=== PATIENT | male | born 1935 | race Caucasian/White ===

== ENCOUNTER → 2018-03-07 13:59 | Outpatient (CLI) | payer MEDICARE, OTHER, SELFPAY ==
--- NOTE | 2018-03-07 | DI.US.S_ITS ---
PROCEDURE: US RENAL COMPLETE INDICATIONS: HISTORY OF BLADDER CANCER TECHNIQUE: Real-time scanning was performed of the kidneys and bladder, with image documentation. COMPARISON: [facility], CT, KIDNEY/ URETER/BLADDER, 07/22/2017, 11:00. FINDINGS: Kidneys: Left kidney is surgically absent. Right kidney is normal measuring 13.7 cm in length with renal cortical thickness 2.3 cm. No hydronephrosis, nephrolithiasis or mass. Bladder: Pre-void bladder volume is 199 mL. Post-void residual is 27 mL. Pre-void images demonstrate no intraluminal masses or stones. On pre-void images, right ureteral jets are noted with color Doppler interrogation. (Of note, ureteral jets may not be detectable in up to 25% of cases due to insufficient differences in specific gravity between ureteral and bladder urine). Miscellaneous: No free pelvic fluid. IMPRESSION: Normal appearance of the solitary right kidney. Dictated by: Abelardo RUVALCABA Interpreted: Marko Iglesias MD on 03/07/2018 at 14:36 Approved by: Oleksandr Iglesias M.D. on 03/10/2018 at 13:01
== END ==
PROVIDERS: Family Provider Family Medicine; PCP Family Medicine; Visit Provider Urology
DX: Z90.5 Acquired absence of kidney (principal); Z85.51 Personal history of malignant neoplasm of bladder
CPT/HCPCS: 76770

== ENCOUNTER → 2018-03-10 13:19 | Outpatient (CLI) | payer MEDICARE, OTHER, SELFPAY ==
--- NOTE | 2018-03-10 | DI.MRI.S_ITS ---
PROCEDURE: MR KNEE RT WO CON INDICATIONS: OSTEOARTHRITIS - right TECHNIQUE: Noncontrast sagittal PD fast spin echo and T2 fast spin echo with fat saturation, sagittal 3-D FLASH with fat saturation; coronal T1 spin echo and PD fast spin echo with fat saturation, and axial PD fast spin echo with fat saturation through the knee. COMPARISON: None. FINDINGS: Image quality: Excellent. Menisci: Circumferential severe macerated and poorly defined tear of the medial meniscus. Very little medial meniscal body substances identified. Undersurface tear involving the posterior horn and body of the lateral meniscus. Cruciate ligaments: Anterior cruciate ligament is not well-visualized and likely ruptured. Posterior cruciate ligament appears intact. Medial structures: The medial collateral ligament appears intact although there may be sequela of age indeterminate mild sprain. The posterior oblique ligament, semimembranosus tendon insertions, oblique popliteal ligament, and meniscocapsular junction appear intact. Visualized portions of the pes anserinus tendons appear normal. No abnormal bursal fluid. Lateral structures: The lateral collateral ligament, long and short heads of the biceps femoris tendon appear intact. The popliteus tendon appears normal; the popliteofibular ligament appears intact. The posterosuperior and anteroinferior popliteomeniscal fascicles appear intact. The arcuate and fabellofibular ligaments appear intact, on either side of the lateral inferior geniculate artery. Iliotibial band appears normal. Anterior structures: Prepatellar and superficial infrapatellar subcutaneous edema. The quadriceps and patellar tendons appear intact. Patellar alignment is normal. No femoral trochlear dysplasia or ventral trochlear prominence. No edema in the infrapatellar fat pad. Bones and cartilage: No bone marrow contusions or fractures. Within the medial compartment, full-thickness femoral and tibial articular cartilage loss is present with extensive subchondral cystic change and marrow edema. Within the lateral compartment, there is partial-thickness loss of surface fraying of the central weightbearing femoral and tibial articular cartilage. Within the patellofemoral compartment, near full-thickness loss of the central femoral trochlear cartilage. There is diffuse surface fraying of the patellar articular cartilage. Joint space: Large joint effusion is present. Multiple loose bodies seen in the posterior joint space, measuring approximately 1 cm or less. These are seen on image 39 series 5, image 46 are 5 for example. IMPRESSION: Severe circumferential poorly defined and macerated tear of the medial meniscus. Very little of substance of the medial meniscus body is seen. Undersurface tear involving the posterior horn and body of the lateral meniscus. Large joint effusion. Ruptured anterior cruciate ligament, age indeterminate finding although suspected to be chronic. Please correlate to clinical exam findings. Severe degenerative joint disease most advanced within the medial compartment, where there is full thickness denudation of the articular cartilage. Large joint effusion Numerous loose bodies within the posterior joint space as above. Dictated by: Kal Brown M.D. on 03/10/2018 at 14:22 Approved by: Kal Brown M.D. on 03/10/2018 at 14:37
== END ==
PROVIDERS: Family Provider Family Medicine; PCP Family Medicine; Visit Provider Orthopaedic Surgery
DX: M17.11 Unilateral primary osteoarthritis, right knee (principal); S83.241A Other tear of medial meniscus, current injury, right knee, initial encounter; M25.461 Effusion, right knee; S83.281A Other tear of lateral meniscus, current injury, right knee, initial encounter; M23.41 Loose body in knee, right knee
CPT/HCPCS: 73721

== ENCOUNTER 2018-05-05 08:46 | Inpatient (IN) | payer MEDICARE, OTHER, SELFPAY ==
[2018-04-24 08:43] VITALS: BMI 39.5
[2018-05-05] VITALS (15 sets, daily range): BP systolic 108–171; BP diastolic 59–88; PULSE 50–633; RESP 10–20; TEMP 35.7–36.6; O2SAT 92–98; BMI 37.8
--- NOTE | 2018-05-05 | DI.RAD.S_ITS ---
PROCEDURE: XR KNEE RT 1TO2V INDICATIONS: RIGHT TOTAL KNEE TECHNIQUE: 2 view(s) of the knee acquired. COMPARISON: [facility] SASHA Contreras, XR KNEE ARTHRITIC SERIES , 02/26/2018, 10:05. FINDINGS: Bones: Patient is status post knee joint arthroplasty. Hardware components are in expected positions. Visualized bony structures are intact. Soft tissues: Overlying postoperative changes are noted. IMPRESSION: Acute postoperative changes total right knee arthroplasty Dictated by: Oleksandr Iglesias M.D. on 05/05/2018 at 13:26 Approved by: Oleksandr Iglesias M.D. on 05/05/2018 at 13:27
[2018-05-05] MEDS: LACTATED RINGERS 1,000 ML 42 ML IV (09:30)
[2018-05-05] MEDS: VANCOMYCIN 1,000 MG/200 ML FROZ.PIGGY 133.333 MG IV (10:00)
[2018-05-05 10:07] LABS: Blood Urea Nitrogen 42 mg/dL (9-20); Calcium 8.4 mg/dL (8.4-10.2); Carbon Dioxide 22 mmol/L (22-32); Chloride 104 mmol/L (98-107); Estimated Glomerular Filt Rate 20.2 mL/min (>60); Glucose 176 mg/dL (80-110); HEMOLYSIS < 15 (0-50); Potassium 4.3 mmol/L (3.4-5.1); Sodium 139 mmol/L (137-145)
--- NOTE | 2018-05-05 10:10 | SUR.PREOP ---
BMP DRAWN AND SENT TO LAB, ORTHO OFFICE CALLED IN ATTEMPT TO GET CARDIOLOGY CLEARANCE, REPORT FAXED, DR MAR ACTUALLY LOOKING FOR CARDIOLOGY NOTE FROM LAST SATURDAY, DR KHOURY TRYING TO CALL FOR INFO.
[2018-05-05] MEDS: SODIUM CHLORIDE 0.9% 1,000 ML 42 ML IV ×2 (10:20→13:09)
--- NOTE | 2018-05-05 10:26 | PM.PREOP ---
Pre-operative Note Interval Note Pre-op Check: History & Physical Reviewed by Physician and Exam Performed
--- NOTE | 2018-05-05 10:41 | P.OP_ITS ---
Operative Date/Time/Diagnoses Date of procedure: 05/05/18 Time of procedure: 10:55 Pre-op diagnosis: Right knee OA Post-op diagnosis: same Procedure & Clinicians Procedure: Right total knee arthroplasty Same procedure as scheduled: Yes Indications: The patient has had progressively worsening right knee pain with radiographic changes consistent with arthritis. Non-operative management has failed and the patient has requested total knee replacement. The risks, benefits and alternatives to surgery were discussed with the patient prior to proceeding. Risks discussed included, but were not limited to, failure to relieve pain, stiffness, infection, nerve damage, deep venous thrombosis, pulmonary embolism, stroke, coma, heart attack, permanent paralysis and , as well as the potential need for eventual revision of the prosthetic. Surgeon: Kathi Ross Digital Print Operator: Yosi Haro Anesthesia Type: General and Spinal Operative Notes Findings: Severe right knee OA Closure Type: primary Specimen(s): none sent Implants & Drains: Right total knee Journey BCS2 size 5 femur, size 5 tibia, poly 10, patella 35 oval Applied: drain(s) Estimated Blood Loss (mL): 300 Blood products transfused: none Tourniquet time (min): 67 Procedure in detail: The patient was seen in the pre-operative area, where the patient identified the right knee as the operative site and this was marked with my initials. The patient received pre-operative antibiotics, and was taken to the operating room and placed on the operative table in the supine position. After satisfactory anesthesia, a protective signal installer helper out was performed. The right leg was encircled with a tourniquet about the proximal thigh, and the leg was prepared from the toes to the tourniquet with ChloroPrep in the usual fashion and draped through sterile drapes. The leg was elevated and exsanguinated with Eschmark bandage and the tourniquet inflated to [250] mmHg pressure. The knee was approached through an approximately 18 cm incision centered over the patella and carried into the knee through a medial parapatellar arthrotomy. A portion of the medial and lateral meniscus was resected. Soft tissue was carefully mobilized around the patella the patella was measured with a caliper. Bone was resected from the patella and the patellar height was reconstituted with up an appropriate sized patellar component. For a cover was then placed on the patella. A small amount of additional medial and lateral meniscus was resected. The visionary guide fit well to the distal femur. It looked like an appropriate distal femoral cut and the cut was made without difficulty. The rotation was assessed and the appropriate size femoral guide was placed on the distal femur and finishing cuts were made. There is no evidence of notching. The anterior, posterior and chamfer cuts were then made. The posterior osteophytes and multiple loose bodies and soft tissues were then removed. The posterior capsule was injected with part of a mixture of 60 ml 0.25% Marcaine mixed with 20 ml Exparel for post operative pain control. The remainder of this mixture was injected into the capsule and subcutaneous tissues during cement curing. The tibia was prepared and the visionaire guide fit well to the distal tibia. The rotation was assessed. The patient was placed in extension residual medial and lateral meniscus as well as any residual bone was carefully resected. [No] additional tibia was resected. Hemostasis was achieved especially posteriorly. Additional local was injected into the posterior capsule. The extension gap was assessed and additional releases for gap balancing were performed as necessary. It was checked with the gap assistant food service manager. The femoral component was trial was placed and the notch was finished. Trial tibial and femoral components were then placed and the knee placed through a range of motion. Range of motion was [ 0-130], with good stability throughout the range. The trials were then removed, and the tibia was finished. The bone was prepared with pulsatile lavage, and dried with a sponge. Cement was applied and the final prosthetics placed. Excess cement was removed during and after cement curing. A brief Betadine soak was performed. After confirming there was no extruded cement posteriorly, the final tibial insert was placed. The knee was copiously irrigated and the tourniquet deflated. Hemostasis was obtained with the cautery. A drain was placed and brought out superolaterally. The capsule was closed with interrupted # 1 black braided suture. The subcutaneous layer was closed with barbed sutures, and the skin with a running 3-0 V-Lock suture and Surgical glue. An Aquacel Ag dressing was applied and the patient was taken to recovery having tolerated the procedure well. Complications: none Condition: stable Disposition: Acute Care Plan for aftercare: The patient will be maintained on a standard total knee replacement protocol with weight bearing as tolerated. The patient will receive aspirin and sequential compression devices for DVT prophylaxis. The patient will be discharged home when safe for the home environment.
[2018-05-05] MEDS: CEFAZOLIN 2 GM/100 ML FROZ.PIGGY IV ×2 (11:07→18:55)
--- NOTE | 2018-05-05 11:29 | SUR.OPER ---
Supine on padded OR bed. Pillow under head, arms secured on padded armboards <90 degree abduction. Safety belt across torso. Non-operative leg secured with tape over blanket over lower leg. Operative leg secured in DeMayo/Augustin positioner. Foam padded brace at thigh of operative leg.
[2018-05-05] MEDS: BUPIVACAINE LIPOSOME 266 MG/20 ML VIAL INJ (11:36)
[2018-05-05] MEDS: BUPIVACAINE 0.25% W/ EPI VIAL 50 ML INJ (11:37)
--- NOTE | 2018-05-05 11:43 | SUR.PREOP ---
late entry: spoke at length to malena the pharmacist and dr green about vanco dose. ordered dose given, with instruction to carefully follow creatinine post op.
[2018-05-05] MEDS: TRANEXAMIC ACID 1,000 MG VIAL 1000 MG IV (11:45)
--- NOTE | 2018-05-05 11:45 | SUR.PREOP ---
addendum pharmacist instructions discussed with dr green.
--- NOTE | 2018-05-05 13:23 | SUR.PHASEI ---
Dr. Lo notified lungs mildly congested, i.s. ordered per MD>
--- NOTE | 2018-05-05 13:35 | SUR.PHASEI ---
Report called to FABIOLA Portillo
--- NOTE | 2018-05-05 14:01 | SUR.PHASEI ---
Transferred to the floor. Report to FABIOLA Jones. VS stable. Drsg cd, + pp x2, ble warm, edematous. + movement to la toes,
[2018-05-05] MEDS: OXYCODONE IR 5 MG TABLET PO (14:45)
--- NOTE | 2018-05-05 16:43 | PM.CN ---
History of Present Illness Date Patient Seen: 05/05/18 Time Patient Seen: 16:43 Chief complaint: rt totol knee arthroplasty [id number] Reason for consult: Medical management perioperative Narrative: 83-year-old male with multiple medical problems underwent right total knee arthroplasty today per Dr. Ross. She has asked that I follow the patient in the perioperative. For his multiple medical problems. He is doing well postoperatively he has no complaints other than hard to get comfortable. He denies any chest pain or difficulty breathing. PFSH Medical History Coronary artery disease (Acute) Arthritis (Acute) BCC (basal cell carcinoma), back (Acute) Bladder cancer (Acute) CKD (chronic kidney disease), stage IV (Acute) CVA (cerebral vascular accident) (Acute) Chronic congestive heart failure (Acute) Diabetes (Acute) Easy bruisability (Acute) Eczema (Acute) Edema (Acute) Enlarged prostate (Acute) GERD (gastroesophageal reflux disease) (Acute) Gout (Acute) HTN (hypertension) (Acute) Hyperlipidemia (Acute) Ischemic cardiomyopathy (Acute) Nasal fracture (Acute) Pneumonia (Acute) Renal cancer (Acute) Tendency toward bleeding easily (Acute) Surgical History History of nephrectomy (Acute) History of vasectomy (Acute) Hx of hand surgery (Acute) Hx of heart artery stent (Acute) Hx of hernia repair (Acute) Hx of tonsillectomy (Acute) S/P CABG x 3 (Acute) Social History household members: none Smoking Status: Former smoker alcohol intake: current Meds Home Medications Medication Instructions Recorded Confirmed Type allopurinol 100 mg PO QAM 04/24/18 05/05/18 History amlodipine 5 mg PO BID 04/24/18 05/05/18 History aspirin 81 mg PO BEDTIME 04/24/18 05/05/18 History atorvastatin 80 mg PO BEDTIME 04/24/18 05/05/18 History ezetimibe [Zetia] 10 mg PO BEDTIME 04/24/18 05/05/18 History furosemide 20 mg PO QAM 04/24/18 05/05/18 History insulin glargine [Lantus Solostar 50 unit SUB-Q QAM 04/24/18 05/05/18 History U-100 Insulin] isosorbide mononitrate 60 mg PO QAM 04/24/18 05/05/18 History omeprazole 20 mg PO BEDTIME 04/24/18 05/05/18 History carvedilol 25 mg PO DAILY 05/05/18 05/05/18 History Allergies Allergy/AdvReac Type Severity Reaction Status Date / Time bacitracin Allergy Severe Blister Verified 04/24/18 09:05 [From Neosporin ([id number])] griseofulvin Allergy Severe Rash Verified 04/24/18 09:05 neomycin Allergy Severe Blister Verified 04/24/18 09:05 [From Neosporin ([id number])] polymyxin B Allergy Severe Blister Verified 04/24/18 09:05 [From Neosporin ([id number])] adhesive tape Allergy Intermediate Blisters Verified 04/24/18 09:05 if left on too long Review of Systems Review of Systems All systems reviewed & are unremarkable except as noted in HPI and below Exam Vital Signs (past 8 hours): - 05/05/18 09:47 05/05/18 12:57 05/05/18 13:02 Temperature 97.1 F L 97.9 F Pulse Rate 69 62 633 H Respiratory Rate 18 11 L 10 L Blood Pressure 148/85 H 108/59 L 113/63 Pulse Oximetry 95 92 93 05/05/18 13:07 05/05/18 13:12 05/05/18 13:18 Temperature Pulse Rate 63 60 61 Respiratory Rate 10 L 11 L 13 Blood Pressure 116/72 129/71 H 128/66 H Pulse Oximetry 94 94 93 05/05/18 13:23 05/05/18 13:38 05/05/18 13:55 Temperature 96.9 F L 96.7 F L Pulse Rate 61 57 L 60 Respiratory Rate 10 L 14 14 Blood Pressure 129/60 H 141/63 H 149/75 H Pulse Oximetry 94 94 93 05/05/18 14:25 05/05/18 14:55 05/05/18 15:56 Temperature 96.8 F L 96.8 F L 96.8 F L Pulse Rate 59 L 65 50 L Respiratory Rate 16 16 18 Blood Pressure 162/88 H 168/81 H 153/71 H Pulse Oximetry 95 96 96 Oxygen Delivery Method Room Air Oxygen Flow Rate 2 Narrative Exam Narrative: Pleasant elderly male obese resting comfortably no acute distress HEENT exam unremarkable oropharynx clear Neck is supple Lungs Clear to auscultation Heart regular rhythm Abdomen obese mildly distended bowel sounds present Lower extremities trace edema Neuro exam awake alert no focal deficits Skin warm and dry Objective Labs Result Diagrams: 05/05/18 Unknown Labs: Laboratory Results - last 24 hr 05/05/18 Unknown Sodium 139 Potassium 4.3 Chloride 104 Carbon Dioxide 22 BUN 42 H Creatinine 3.00 H Estimated GFR 20.2 L BUN/Creatinine Ratio 14.0 Glucose 176 H Calcium 8.4 Assessment & Plan Plan: Assessment/Plan Narrative: One. Status post knee surgery management as per Orthopedics 2. Coronary artery disease with history of bypass surgery in the past seems to be clinically quiet no signs of ongoing ischemia 3. Chronic kidney disease stage 4 with a serum creatinine of 3. Plan to watch this carefully in the perioperative.. Plan to check recheck a chemistry profile in the morning make sure he is well-hydrated 4. Diabetes type 2 continue with current insulin and as needed Humalog to be used 5. History of hypertension plan to continue current meds
--- NOTE | 2018-05-05 16:47 | P.CONS_ITS ---
History of Present Illness Date Patient Seen: 05/05/18 Time Patient Seen: 16:43 Chief complaint: rt totol knee arthroplasty [id number] Reason for consult: Medical management perioperative Narrative: 83-year-old male with multiple medical problems underwent right total knee arthroplasty today per Dr. Ross. She has asked that I follow the patient in the perioperative. For his multiple medical problems. He is doing well postoperatively he has no complaints other than hard to get comfortable. He denies any chest pain or difficulty breathing. PFSH Medical History Coronary artery disease (Acute) Arthritis (Acute) BCC (basal cell carcinoma), back (Acute) Bladder cancer (Acute) CKD (chronic kidney disease), stage IV (Acute) CVA (cerebral vascular accident) (Acute) Chronic congestive heart failure (Acute) Diabetes (Acute) Easy bruisability (Acute) Eczema (Acute) Edema (Acute) Enlarged prostate (Acute) GERD (gastroesophageal reflux disease) (Acute) Gout (Acute) HTN (hypertension) (Acute) Hyperlipidemia (Acute) Ischemic cardiomyopathy (Acute) Nasal fracture (Acute) Pneumonia (Acute) Renal cancer (Acute) Tendency toward bleeding easily (Acute) Surgical History History of nephrectomy (Acute) History of vasectomy (Acute) Hx of hand surgery (Acute) Hx of heart artery stent (Acute) Hx of hernia repair (Acute) Hx of tonsillectomy (Acute) S/P CABG x 3 (Acute) Social History household members: none Smoking Status: Former smoker alcohol intake: current Meds Home Medications Medication Instructions Recorded Confirmed Type allopurinol 100 mg PO QAM 04/24/18 05/05/18 History amlodipine 5 mg PO BID 04/24/18 05/05/18 History aspirin 81 mg PO BEDTIME 04/24/18 05/05/18 History atorvastatin 80 mg PO BEDTIME 04/24/18 05/05/18 History ezetimibe [Zetia] 10 mg PO BEDTIME 04/24/18 05/05/18 History furosemide 20 mg PO QAM 04/24/18 05/05/18 History insulin glargine [Lantus Solostar 50 unit SUB-Q QAM 04/24/18 05/05/18 History U-100 Insulin] isosorbide mononitrate 60 mg PO QAM 04/24/18 05/05/18 History omeprazole 20 mg PO BEDTIME 04/24/18 05/05/18 History carvedilol 25 mg PO DAILY 05/05/18 05/05/18 History Allergies Allergy/AdvReac Type Severity Reaction Status Date / Time bacitracin Allergy Severe Blister Verified 04/24/18 09:05 [From Neosporin ([id number])] griseofulvin Allergy Severe Rash Verified 04/24/18 09:05 neomycin Allergy Severe Blister Verified 04/24/18 09:05 [From Neosporin ([id number])] polymyxin B Allergy Severe Blister Verified 04/24/18 09:05 [From Neosporin ([id number]-wrs-[id number])] adhesive tape Allergy Intermediate Blisters Verified 04/24/18 09:05 if left on too long Review of Systems Review of Systems All systems reviewed & are unremarkable except as noted in HPI and below Exam Vital Signs (past 8 hours): - 05/05/18 09:47 05/05/18 12:57 05/05/18 13:02 Temperature 97.1 F L 97.9 F Pulse Rate 69 62 633 H Respiratory Rate 18 11 L 10 L Blood Pressure 148/85 H 108/59 L 113/63 Pulse Oximetry 95 92 93 05/05/18 13:07 05/05/18 13:12 05/05/18 13:18 Temperature Pulse Rate 63 60 61 Respiratory Rate 10 L 11 L 13 Blood Pressure 116/72 129/71 H 128/66 H Pulse Oximetry 94 94 93 05/05/18 13:23 05/05/18 13:38 05/05/18 13:55 Temperature 96.9 F L 96.7 F L Pulse Rate 61 57 L 60 Respiratory Rate 10 L 14 14 Blood Pressure 129/60 H 141/63 H 149/75 H Pulse Oximetry 94 94 93 05/05/18 14:25 05/05/18 14:55 05/05/18 15:56 Temperature 96.8 F L 96.8 F L 96.8 F L Pulse Rate 59 L 65 50 L Respiratory Rate 16 16 18 Blood Pressure 162/88 H 168/81 H 153/71 H Pulse Oximetry 95 96 96 Oxygen Delivery Method Room Air Oxygen Flow Rate 2 Narrative Exam Narrative: Pleasant elderly male obese resting comfortably no acute distress HEENT exam unremarkable oropharynx clear Neck is supple Lungs Clear to auscultation Heart regular rhythm Abdomen obese mildly distended bowel sounds present Lower extremities trace edema Neuro exam awake alert no focal deficits Skin warm and dry Objective Labs Result Diagrams: 05/05/18 Unknown Labs: Laboratory Results - last 24 hr 05/05/18 Unknown Sodium 139 Potassium 4.3 Chloride 104 Carbon Dioxide 22 BUN 42 H Creatinine 3.00 H Estimated GFR 20.2 L BUN/Creatinine Ratio 14.0 Glucose 176 H Calcium 8.4 Assessment & Plan Plan: Assessment/Plan Narrative: One. Status post knee surgery management as per Orthopedics 2. Coronary artery disease with history of bypass surgery in the past seems to be clinically quiet no signs of ongoing ischemia 3. Chronic kidney disease stage 4 with a serum creatinine of 3. Plan to watch this carefully in the perioperative.. Plan to check recheck a chemistry profile in the morning make sure he is well-hydrated 4. Diabetes type 2 continue with current insulin and as needed Humalog to be used 5. History of hypertension plan to continue current meds
[2018-05-05] MEDS: ACETAMINOPHEN 325 MG TABLET 975 MG PO ×2 (17:09→22:03)
[2018-05-05] MEDS: LACTATED RINGERS 1,000 ML 125 ML IV (17:25)
[2018-05-05] MEDS: ATORVASTATIN 20 MG TABLET 80 MG PO (22:00)
[2018-05-05] MEDS: ASPIRIN EC 81 MG TABLET PO (22:00)
[2018-05-05] MEDS: DOCUSATE 100 MG CAPSULE PO (22:00)
[2018-05-05] MEDS: AMLODIPINE 5 MG TABLET PO (22:00)
[2018-05-05] MEDS: EZETIMIBE 10 MG TABLET PO (22:00)
[2018-05-05] MEDS: PANTOPRAZOLE 20 MG TABLET PO (22:00)
[2018-05-06] VITALS (8 sets, daily range): BP systolic 123–169; BP diastolic 69–94; PULSE 81–98; RESP 15–19; TEMP 36.5–37.9; O2SAT 93–99
[2018-05-06] MEDS: OXYCODONE IR 5 MG TABLET PO ×2 (00:35→06:16)
[2018-05-06] MEDS: LACTATED RINGERS 1,000 ML 125 ML IV (00:39)
[2018-05-06] MEDS: CEFAZOLIN 2 GM/100 ML FROZ.PIGGY IV (02:52)
[2018-05-06 05:56] LABS: Add Manual Diff / Slide Review NO; Basophils Percent Auto 0.6 % (0-2); Eosinophils Percent Auto 1.1 % (2-4); Hematocrit 33.3 % (41-53); Hemoglobin 11.6 g/dL (13.5-17.5); Mean Corpuscular HGB Conc 34.8 % (30-36); Mean Corpuscular Hemoglobin 32.6 PG (26-34); Mean Corpuscular Volume 93.5 fL (80-100); Monocytes Percent Auto 7.6 % (3-14); Neutrophils Absolute Auto 5000 /uL (3000-5900); Neutrophils Percent Auto 82.7 % (50-75); Platelet Count 177 X10^3/uL (150-400); Red Blood Cell Count 3.56 X10^6/uL (4.5-5.9); Red Cell Distribution Width 13.8 % (11.6-14.8)
[2018-05-06 06:09] LABS: Alanine Aminotransferase 21 IU/L (21-72); Albumin 3.6 g/dL (3.5-5.0); Albumin Globulin Ratio 1.3 (1.0-2.8); Alkaline Phosphatase 87 U/L (38-126); Aspartate Aminotransferase 20 IU/L (17-59); Bilirubin Total 0.6 mg/dL (0.2-1.3); Blood Urea Nitrogen 30 mg/dL (9-20); Calcium 7.9 mg/dL (8.4-10.2); Carbon Dioxide 24 mmol/L (22-32); Chloride 101 mmol/L (98-107); Estimated Glomerular Filt Rate 27.4 mL/min (>60); Globulin 2.7 g/dL (1.7-4.1); Glucose 200 mg/dL (80-110); HEMOLYSIS < 15 (0-50); Potassium 4.2 mmol/L (3.4-5.1); Sodium 135 mmol/L (137-145); Total Protein 6.3 g/dL (6.3-8.2)
[2018-05-06] MEDS: OXYCODONE IR 5 MG TABLET 10 MG PO (08:49)
[2018-05-06] MEDS: ISOSORBIDE MONONITRATE ER 60 MG PO (08:49)
[2018-05-06] MEDS: CARVEDILOL 25 MG TABLET PO (08:50)
[2018-05-06] MEDS: ALLOPURINOL 100 MG TABLET PO (08:50)
[2018-05-06] MEDS: FUROSEMIDE 20 MG TABLET PO (08:50)
[2018-05-06] MEDS: DOCUSATE 100 MG CAPSULE PO ×2 (08:50→20:56)
[2018-05-06] MEDS: INSULIN GLARGINE 100 UNIT/ML 3ML PEN 50 UNIT SUBCUT (08:51)
[2018-05-06] MEDS: ACETAMINOPHEN 325 MG TABLET 975 MG PO ×3 (08:51→20:54)
[2018-05-06] MEDS: INSULIN ASPART 100 UNIT/ML INSULN PEN SUBCUT ×4 (08:51→20:54)
[2018-05-06] MEDS: ASPIRIN EC 81 MG TABLET PO ×2 (09:01→20:55)
[2018-05-06] MEDS: AMLODIPINE 5 MG TABLET PO ×2 (09:01→20:55)
--- NOTE | 2018-05-06 09:56 | PM.PNPO.1 ---
Subjective Date Patient Seen: 05/06/18 Time Patient Seen: 09:56 Interval history: Pt is s/p RT TKA by Dr. Ross. PD1. Pt states having pain in knee and 1 oxycodone 5mg is not sufficient enough for his pain. Has not been up with PT yet. History of DM and chronic renal failure so medically being followed by hospital service. Plan is to D/C home when medically stable. Exam Vital Signs (past 8 hours): - 05/06/18 02:39 05/06/18 05:09 05/06/18 07:30 Temperature 98.5 F 98.6 F Pulse Rate 92 H Respiratory Rate 18 16 Blood Pressure 147/88 H 168/94 H Pulse Oximetry 96 98 96 Oxygen Delivery Method Room Air Oxygen Flow Rate 0 Narrative Exam Narrative: Pt in bed. A&O x3. Rt knee dressing CDI with ADI over wrap. Full sensation in right foot. 5/5 Rt ankle strength. Thomas calves soft and nontender. Hemovac drain in - 200ml evening, 250ml night. Objective Labs Result Diagrams: 05/06/18 04:47 05/06/18 04:47 Labs: Laboratory Results - last 24 hr 05/05/18 05/06/18 05/06/18 Unknown 04:47 04:47 WBC 6.0 RBC 3.56 L Hgb 11.6 L Hct 33.3 L MCV 93.5 MCH 32.6 MCHC 34.8 RDW 13.8 Plt Count 177 Neut % (Auto) 82.7 H Lymph % (Auto) 8.0 L Miller % (Auto) 7.6 Eos % (Auto) 1.1 L Baso % (Auto) 0.6 Neut # (Auto) 5000 Sodium 139 135 L Potassium 4.3 4.2 Chloride 104 101 Carbon Dioxide 22 24 BUN 42 H 30 H Creatinine 3.00 H 2.30 H Estimated GFR 20.2 L 27.4 L BUN/Creatinine Ratio 14.0 13.0 Glucose 176 H 200 H Calcium 8.4 7.9 L Total Bilirubin 0.6 AST 20 ALT 21 Alkaline Phosphatase 87 Total Protein 6.3 Albumin 3.6 Globulin 2.7 Albumin/Globulin Ratio 1.3 Assessment & Plan Post-op Postoperative Procedures Operation Date: 05/05/18 10:45 Actual Procedures Side Surgeon p Total Knee Arthroplasty Right Kathi Johnie Ross MD S/P RT TKA. PD 1. Ambulate with PT. Oxycodone 10mg q3hprn ordered. Continue hemovac drain 1 more day. Possible d/c home in mext day or two. Continue DVT prophylaxis with ASA 81mg and SCDs. Time Spent With Patient less than 15 minutes
--- NOTE | 2018-05-06 10:44 | PT.IIE ---
Current Diagnoses Unilateral primary osteoarthritis, right knee (05/05/18) Surgery Performed Operation Date: 05/05/18 10:45 Actual Procedures p Total Knee Arthroplasty(Right) - Kathi Ross MD Surgical History (Last Updated 04/24/18 @ 09:32 by Desiree Anand RN) History of nephrectomy (Acute) History of vasectomy (Acute) Hx of hand surgery (Acute) Hx of heart artery stent (Acute) Hx of hernia repair (Acute) Hx of tonsillectomy (Acute) S/P CABG x 3 (Acute) Medical History (Last Updated 05/05/18 @ 16:45 by Gómez Calvo MD) Coronary artery disease (Acute) Arthritis (Acute) BCC (basal cell carcinoma), back (Acute) Bladder cancer (Acute) CKD (chronic kidney disease), stage IV (Acute) CVA (cerebral vascular accident) (Acute) Chronic congestive heart failure (Acute) Diabetes (Acute) Easy bruisability (Acute) Eczema (Acute) Edema (Acute) Enlarged prostate (Acute) GERD (gastroesophageal reflux disease) (Acute) Gout (Acute) HTN (hypertension) (Acute) Hyperlipidemia (Acute) Ischemic cardiomyopathy (Acute) Nasal fracture (Acute) Pneumonia (Acute) Renal cancer (Acute) Tendency toward bleeding easily (Acute) Physical Therapy Inpatient Evaluation/Re-Eval M1 PT/OT-IP Prior Functional Status Start: 05/06/18 12:50 Freq: NEEDED Status: Active Protocol: Document 05/06/18 10:44 MDD (Rec: 05/06/18 12:58 MDD [email or web address]) Medical Review Prior Functional Status Medical History Reviewed Yes Communication nml Mobility and Gait independent with no AD Activities of Daily Living and IADL's independent with no AD Social History Household Members none Living Arrangements Mobile home Number of Floors (Floors) One Floor Number of Stairs To Enter/Railing? 5 stairs with L hand railing in front. 4 steps with railing at top in back. Home Environment Standard Height Toilet Tub/Shower Not Wheelchair Accessible Home Equipment Front Wheel Walker Grab Bars In Shower Employment Status Retired Additional Social History Comment Son plans to stay with him for the first week after discharge to assist in the home. M2 PT-IP Current Condition Start: 05/06/18 12:50 Freq: NEEDED Status: Active Protocol: Document 05/06/18 10:44 MDD (Rec: 05/06/18 12:58 MDD [email or web address]) Physical Therapy Current Condition Current Condition Evaluation Date 05/06/18 Treatment Diagnosis s/p R TKA, impaired mobility, impaired gait Onset Date 05/05/18 Weight Bearing Status Weight Bearing Status Weight Bear as Tolerated M3 PT-IP Subjective Start: 05/06/18 12:50 Freq: NEEDED Status: Active Protocol: Document 05/06/18 10:44 MDD (Rec: 05/06/18 12:58 MDD [email or web address]) Subjective Physical Therapy Visit Type Type Initial Evaluation Visit Start Time 10:05 Visit Stop Time 10:44 Total Visit Minutes 39 Number of HOOP MACHINE OPERATOR Visits 0 Physical Therapy Visit Comments Patient Comments Pt reports high pain levels this am. Agreeable to participate with PT. Therapy Pain Assessment Pain When Pain Assessed At Rest Pain Present Pain Present Pain Reported Location Right Knee Intensity 5 Scale Used Numeric (1 - 10) Description Aching Pain Management Techniques Timing of Activity with Medications M4 PT-IP Mobility and Gait Start: 05/06/18 12:50 Freq: NEEDED Status: Active Protocol: Document 05/06/18 10:44 MDD (Rec: 05/06/18 12:58 MDD [email or web address]) PT-Bed Mobility Assessment Rolling Type of Rolling Log Rolling Level of Assist Contact Guard Assistance Supine to Sit Supine to Sit Minimal Assistance Head of Bed Elevated Sit to Supine Sit to Supine Minimal Assistance Scooting Scooting to Edge of Bed Independent PT-Transfer Assessment Sit to and From Stand Sit to and from Stand Contact Guard Assistance Equipment Transfer Assistive Device Gait Belt Front Wheeled Walker Orthotic/Prosthetic Devices or Brace: No Transfers Transfer Destination Bed Transfer Ability Level of Assist Contact Guard Assistance Gait Assessment Gait Gait Assistance Required: Contact Guard Assist Distance (Feet) (feet) 20 Able to Maintain Weight Bearing Status Yes During Gait Assistive Devices Assistive Device Gait Belt Front Wheeled Walker Gait Deviations General Gait Pattern Antalgic Decreased Stride Length Step-to Gait Wide Based Gait Comments Gait Comments increased reliance on UE's PT-Balance Assessment Sitting Balance and Reactions Static Sitting Balance Ability Normal Dynamic Sitting Balance Ability Normal Standing Balance and Reactions Static Standing Balance Ability Normal Dynamic Standing Balance Ability Good M5 PT-IP Objective Assessments Start: 05/06/18 12:50 Freq: NEEDED Status: Active Protocol: Document 05/06/18 10:44 MDD (Rec: 05/06/18 12:58 MDD [email or web address]) Orientation Orientation/Cognition Level of Alertness Alert Orientation Name Age Birthday Month Date Year Day of Week Place Situation Language Function Ability No Deficits Noted Safety Awareness Understands Safety Issues Memory Description No Deficits Noted Gross Range of Motion Lower Extremity ROM Assessment Within Functional Limits Strength Lower Extremity Strength Assessment Within Functional Limits Sensation Assessment Sensation Light Touch Intact M6 PT-IP Treatment Start: 05/06/18 12:50 Freq: NEEDED Status: Active Protocol: Document 05/06/18 10:44 MDD (Rec: 05/06/18 12:58 MDD [email or web address]) Physical Therapy Treatment Exercises Exercises Ankle Pumps Gluteal Sets Quad Sets Heel Slides Straight Leg Raises Supine Hip Abduction Seated Knee Flexion/Extension Knee ROM Measurement -20 to 60 Education Education Provided Precautions Weight Bearing Status Post-Op Packet Safety M7 PT-IP Assessment and Plan Start: 05/06/18 12:50 Freq: NEEDED Status: Active Protocol: Document 05/06/18 10:44 MDD (Rec: 05/06/18 12:58 MDD [email or web address]) PT Summary Assessment and Plan Potential Rehabilitation Potential Excellent Status of Condition at Evaluation Stable Summary Impairments Pain ROM Bed Mobility Transfers Gait Progress Towards Goals Progressing Toward Goals Assessment Summary Pt demonstrating ability to ambulate up to 20 feet with CGA, limited most by pain this am. Goals Bed Mobility Goal Independent Transfer Goal Independent Gait Goal Standby Assistance Gait Distance 75 Other Goals Ascend/descend 5 steps with L hand railing Days to Meet Goals 3 Frequency of Treatment Frequency Of Treatment Twice a Day Treatment Plan Physical Therapy Treatment Plan Bed Mobility Training Transfer Training Gait Training Therapeutic Exercise Post Op Education Discharge Planning Other Recommendations and Next Treatment Trial greater distance gait Focus training, review bed mobility, stair training Recommendations To Nursing Amount of Assist Needed 1 Person Assist Discharge Recommendations PT Discharge Recommendations Home with Assistance
--- NOTE | 2018-05-06 14:15 | PC.NURSE ---
day shift- pt states pain not controlled with 5mg oxy. Notified PA and order for 10 mg oxy to be given. Pt states this does help his pain and was able to sleep this afternoon and work with PT. Hemovac drain with 110 ml sanguenous output. hourly rounding provided, call light within reach.
--- NOTE | 2018-05-06 15:14 | PT.IPTN ---
Current Diagnoses Unilateral primary osteoarthritis, right knee (05/05/18) Surgery Performed Operation Date: 05/05/18 10:45 Actual Procedures p Total Knee Arthroplasty(Right) - Kathi Ross MD Physical Therapy Treatment Note M2 PT-IP Current Condition Start: 05/06/18 12:50 Freq: NEEDED Status: Active Protocol: Document 05/06/18 10:44 MDD (Rec: 05/06/18 12:58 MDD [email or web address]) Physical Therapy Current Condition Current Condition Evaluation Date 05/06/18 Treatment Diagnosis s/p R TKA, impaired mobility, impaired gait Onset Date 05/05/18 Weight Bearing Status Weight Bearing Status Weight Bear as Tolerated M3 PT-IP Subjective Start: 05/06/18 12:50 Freq: NEEDED Status: Active Protocol: Document 05/06/18 15:14 MDD (Rec: 05/06/18 16:57 MDD [email or web address]) Subjective Physical Therapy Visit Type Type Treatment Note Visit Start Time 14:50 Visit Stop Time 15:14 Total Visit Minutes 24 Number of SMOKE JUMPER Visits 0 Physical Therapy Visit Comments Patient Comments Agreeable to participate. Reports he slept for a few hours and feels much better rested. Therapy Pain Assessment Pain When Pain Assessed At Rest Pain Present Pain Present Pain Reported Location Right Knee Intensity 7 Scale Used Numeric (1 - 10) Description Aching Pain Management Techniques Apply Cold M4 PT-IP Mobility and Gait Start: 05/06/18 12:50 Freq: NEEDED Status: Active Protocol: Document 05/06/18 10:44 MDD (Rec: 05/06/18 12:58 MDD [email or web address]) PT-Bed Mobility Assessment Rolling Type of Rolling Log Rolling Level of Assist Contact Guard Assistance Supine to Sit Supine to Sit Minimal Assistance Head of Bed Elevated Sit to Supine Sit to Supine Minimal Assistance Scooting Scooting to Edge of Bed Independent PT-Transfer Assessment Sit to and From Stand Sit to and from Stand Contact Guard Assistance Equipment Transfer Assistive Device Gait Belt Front Wheeled Walker Orthotic/Prosthetic Devices or Brace: No Transfers Transfer Destination Bed Transfer Ability Level of Assist Contact Guard Assistance Gait Assessment Gait Gait Assistance Required: Contact Guard Assist Distance (Feet) (feet) 20 Able to Maintain Weight Bearing Status Yes During Gait Assistive Devices Assistive Device Gait Belt Front Wheeled Walker Gait Deviations General Gait Pattern Antalgic Decreased Stride Length Step-to Gait Wide Based Gait Comments Gait Comments increased reliance on UE's PT-Balance Assessment Sitting Balance and Reactions Static Sitting Balance Ability Normal Dynamic Sitting Balance Ability Normal Standing Balance and Reactions Static Standing Balance Ability Normal Dynamic Standing Balance Ability Good M5 PT-IP Objective Assessments Start: 05/06/18 12:50 Freq: NEEDED Status: Active Protocol: Document 05/06/18 10:44 MDD (Rec: 05/06/18 12:58 MDD [email or web address]) Orientation Orientation/Cognition Level of Alertness Alert Orientation Name Age Birthday Month Date Year Day of Week Place Situation Language Function Ability No Deficits Noted Safety Awareness Understands Safety Issues Memory Description No Deficits Noted Gross Range of Motion Lower Extremity ROM Assessment Within Functional Limits Strength Lower Extremity Strength Assessment Within Functional Limits Sensation Assessment Sensation Light Touch Intact M6 PT-IP Treatment Start: 05/06/18 12:50 Freq: NEEDED Status: Active Protocol: Document 05/06/18 15:14 MDD (Rec: 05/06/18 16:57 MDD [email or web address]) Physical Therapy Treatment Exercises Knee ROM Measurement -15 to 68 Education Education Provided Precautions Weight Bearing Status Post-Op Packet Safety Other Treatments Other Treatment Performed Gait training with FWW x 50 feet. Cues for step-to progressing to step through pattern. Bed mobility: difficulty with log rolling, requires min A for supine to sit. M7 PT-IP Assessment and Plan Start: 05/06/18 12:50 Freq: NEEDED Status: Active Protocol: Document 05/06/18 15:14 MDD (Rec: 05/06/18 16:57 MDD [email or web address]) PT Summary Assessment and Plan Potential Rehabilitation Potential Excellent Status of Condition at Evaluation Stable Summary Impairments Pain ROM Progress Towards Goals Progressing Toward Goals Assessment Summary Improving with mobility, min A for bed mobility. Ambulating with step to pattern when cued, difficulty with step through. Goals Bed Mobility Goal Independent Transfer Goal Independent Gait Goal Standby Assistance Gait Distance 75 Other Goals Ascend/descend 5 steps with L hand railing Days to Meet Goals 3 Frequency of Treatment Frequency Of Treatment Twice a Day Treatment Plan Physical Therapy Treatment Plan Bed Mobility Training Transfer Training Gait Training Therapeutic Exercise Post Op Education Discharge Planning Other Recommendations and Next Treatment Stair training, increase Focus activity tolerance and gait distance Recommendations To Nursing Amount of Assist Needed 1 Person Assist Discharge Recommendations PT Discharge Recommendations Home with Assistance
--- NOTE | 2018-05-06 15:50 | CM.DANOTE ---
DCP/Assessment: Reviewed chart. Patient is a 83yr old male admitted [facility] for right TKA performed on 05-05-[address] Ross. Primary payor is 1)[employer] [address] [place] [address] for Life. PCP is Angie Trejo. Met with patient explained CM/SW role. Patient alert and oriented, resting comfortably at time of visit. Patient resides alone in [place] Patient reports that his d/c plan is to return home with son/Jason coming to stay with him for a week. Patient indicates that he has all needed DME and does not anticipate any d/c planning needs. Therapy currently following. Patient reports that his understanding is that Ortho office is arranging outpatient therapy for [place] Notified patient that CM team would attempt to check prior to patient's discharge. Patient appreciative. P: Anticipate home when medically stable. CM team to follow closely. KARINE Parrish Discharge Planning/Care Management CM Discharge Assessment Start: 05/06/18 15:48 Freq: Status: Active Protocol: Document 05/06/18 15:48 KJS (Rec: 05/06/18 15:50 KJS [email or web address]) Discharge Planning Assessment Assigned Tower Loader Operator KARINE/Jayal History Provided By Patient Has Patient been admitted in last 30 No days? Prior Living Arrangements Mobile home Household Members none Type of transporation used prior to Drives own vehicle admit Independent with ADL's Yes Is patient alert and oriented? Yes Caregiver for Another No DME Already Rented / Owned FWW / Walker Patient Discharge Plan Description OP PT Therapy Discharge Plan Home Review Status In Process Next Review Type Continued Stay Review
[2018-05-06] MEDS: ATORVASTATIN 20 MG TABLET 80 MG PO (20:55)
[2018-05-06] MEDS: EZETIMIBE 10 MG TABLET PO (20:56)
[2018-05-06] MEDS: PANTOPRAZOLE 20 MG TABLET PO (20:57)
[2018-05-06] MEDS: SODIUM CHLORIDE 0.9% FLUSH 10 ML IV ×2 (20:58→23:57)
--- NOTE | 2018-05-06 22:31 | PC.NURSE ---
Venessa shift- Pt up with PT ambulating in hallways w FWW. Removed kvng wrap, applyed ice packs to sides and behind right knee. Pt reports pain tolerable 1-2/10. Declined pain meds this shift. SpO2 96-97% RA, LS clear. Hx [place] to right side face. Humours personality, call light in reach and bed alarm on for safety.
[2018-05-07 06:03] VITALS: BP 162/82; PULSE 94; RESP 19; TEMP 36.5; O2SAT 93
[2018-05-07 08:00] VITALS: BP 161/89; PULSE 97; RESP 16; TEMP 37.1; O2SAT 95
--- NOTE | 2018-05-07 08:40 | P.DS_ITS ---
History of Present Illness Date Patient Seen: 05/07/18 Time Patient Seen: 08:35 Chief complaint: rt totol knee arthroplasty [id number] Narrative: Patient is a 83-year-old male with history of right knee osteoarthritis. He failed conservative measures and elected to proceed with a right total knee replacement by Dr. Ross at the [facility]. Discharge Providers Date of admission: 05/05/18 08:46 Primary care physician: Angie Trejo DO Consults: 05/05/18 14:27 Consult to Discharge Planning Routine Comment: Consult to Physical Therapy Evaluate & Treat Comment: oob today Physician Instructions: postop TKA protocol Consult to Respiratory Therapy Evaluate & Treat Comment: Physician Instructions: Evaluate and treat Discharge provider: Ai Pierson PA-C Summary Discharge Diagnosis: 1. Right knee osteoarthritis 2. Diabetes mellitus 3. Renal disease 4. Coronary artery disease Hospital Course: Patient was admitted and taken to the operating room he had a right total knee replacement by Dr. Ross. He recovered well as strength to the floor for further care. Hospitalist service was also consulted for his medical care due to his history of diabetes mellitus, renal disease, and coronary artery disease. Postop day 2 patient was ambulating well, pain was under control, eating and drinking well, urinating without difficulty and was ready to be discharged home. He will be discharged home with oxycodone 10 mg as needed for pain. Aspirin 81 mg to be used for DVT prophylaxis. Patient has a follow-up in the office next week and will contact [facility] in [place] to set up outpatient physical therapy. He will continue his home medications. Status at Discharge Cognitive/behavioral status at discharge: Alert and orient x3 Functional status at discharge: uses cane/walker Overall status at discharge: patient is not back to baseline Time Spent with Patient Less than 30 minutes Exam Vital Signs (past 8 hours): - 05/07/18 06:03 05/07/18 08:00 Temperature 97.7 F 98.8 F Pulse Rate 94 H 97 H Respiratory Rate 19 16 Blood Pressure 162/82 H 161/89 H Pulse Oximetry 93 95 Oxygen Delivery Method Room Air Oxygen Flow Rate 0 Narrative Exam Narrative: Patient in bed. Appears comfortable. Alert and oriented x3. Hemovac drain in. Aquacel dressing with 1 spot of wound dry blood. Moderate swelling in right knee. Neurovascular status intact. 5/5 right ankle strength. Bilateral calf soft and nontender. Objective Labs Result Diagrams: 05/06/18 04:47 05/06/18 04:47 Discharge Plan Discharge Plan Patient Disposition: Home, Self-Care Discharge comment: Continue home exercises and contact [facility] in [place] to start outpatient therapy next week. Discharge Med Rec/Prescriptions Prescriptions: New acetaminophen 325 mg Tablet 625 mg PO TID Qty: 60 RF: 0 aspirin 81 mg Tablet,Delayed Release (Dr/Ec) 81 mg PO BID Qty: 0 RF: 0 oxycodone 10 mg tablet 10 mg PO Q4H PRN (Reason: Pain, Severe (7-10)) Qty: 60 RF: 0 Continue atorvastatin 80 mg Tablet 80 mg PO BEDTIME RF: 0 amlodipine 5 mg Tablet 5 mg PO BID RF: 0 allopurinol 100 mg Tablet 100 mg PO QAM RF: 0 isosorbide mononitrate 60 mg Tablet Extended Release 24 Hr 60 mg PO QAM RF: 0 omeprazole 20 mg Capsule,Delayed Release(Dr/Ec) 20 mg PO BEDTIME RF: 0 furosemide 20 mg Tablet 20 mg PO QAM RF: 0 ezetimibe [Zetia] 10 mg Tablet 10 mg PO BEDTIME RF: 0 insulin glargine [Lantus Solostar U-100 Insulin] 100 unit/mL (3 mL) Insulin Pen 50 unit SUB-Q QAM RF: 0 carvedilol 25 mg Tablet 25 mg PO DAILY RF: 0 Discontinued aspirin 81 mg Tablet,Delayed Release (Dr/Ec) 81 mg PO BEDTIME RF: 0 Follow up/Referrals: Kathi Ross MD [Physician] - (Followed up as scheduled time and date. Contact office with any issues or concerns.) Provider Discharge Instructions Diet: Carb-consistent/Diabetic Activity: Activity as tolerated. Use walker/cane to assist in ambulation. Cold/Heat Therapy: Apply ice to the extremity as needed for swelling and inflammation. Wound Care Report to your healthcare provider any signs of infection, such as:: chills, fever, increased pain and unusual drainage Dressing: Keep dressing on. May shower. Visit Report/Discharge Packet Instructions: DI for Knee Replacement Discharge Data Primary Care Provider: Angie Trejo Attending Provider: Kathi Ross Admit Date/Time: 05/05/18 08:46
[2018-05-07] MEDS: INSULIN GLARGINE 100 UNIT/ML 3ML PEN 50 UNIT SUBCUT (09:02)
[2018-05-07] MEDS: INSULIN ASPART 100 UNIT/ML INSULN PEN SUBCUT (09:02)
[2018-05-07] MEDS: AMLODIPINE 5 MG TABLET PO (09:03)
[2018-05-07] MEDS: ALLOPURINOL 100 MG TABLET PO (09:03)
[2018-05-07] MEDS: FUROSEMIDE 20 MG TABLET PO (09:03)
[2018-05-07] MEDS: DOCUSATE 100 MG CAPSULE PO (09:03)
[2018-05-07] MEDS: CARVEDILOL 25 MG TABLET PO (09:03)
[2018-05-07] MEDS: ASPIRIN EC 81 MG TABLET PO (09:03)
[2018-05-07] MEDS: ISOSORBIDE MONONITRATE ER 60 MG PO (09:03)
[2018-05-07] MEDS: ACETAMINOPHEN 325 MG TABLET 975 MG PO (09:04)
[2018-05-07] MEDS: OXYCODONE IR 5 MG TABLET PO (09:52)
--- NOTE | 2018-05-07 11:20 | PT.IPTN ---
Current Diagnoses Unilateral primary osteoarthritis, right knee (05/05/18) Surgery Performed Operation Date: 05/05/18 10:45 Actual Procedures p Total Knee Arthroplasty(Right) - Kathi Ross MD Physical Therapy Treatment Note M2 PT-IP Current Condition Start: 05/06/18 12:50 Freq: NEEDED Status: Active Protocol: Document 05/06/18 10:44 MDD (Rec: 05/06/18 12:58 MDD [email or web address]) Physical Therapy Current Condition Current Condition Evaluation Date 05/06/18 Treatment Diagnosis s/p R TKA, impaired mobility, impaired gait Onset Date 05/05/18 Weight Bearing Status Weight Bearing Status Weight Bear as Tolerated M3 PT-IP Subjective Start: 05/06/18 12:50 Freq: NEEDED Status: Active Protocol: Document 05/07/18 13:20 MDD (Rec: 05/07/18 13:27 MDD [email or web address]) Subjective Physical Therapy Visit Type Type Treatment Note Visit Start Time 10:40 Visit Stop Time 11:20 Total Visit Minutes 40 Number of MICROWAVE SUPERVISOR Visits 0 Physical Therapy Visit Comments Patient Comments Agreeable to perform stair training today. Pain at rest much improved since yesterday. Slept well last night. Therapy Pain Assessment Pain When Pain Assessed During Mobility Pain Present Pain Present Pain Reported Location Right Knee Intensity 5 Scale Used Numeric (1 - 10) Description Aching Pain Management Techniques Apply Cold M4 PT-IP Mobility and Gait Start: 05/06/18 12:50 Freq: NEEDED Status: Active Protocol: Document 05/06/18 10:44 MDD (Rec: 05/06/18 12:58 MDD [email or web address]) PT-Bed Mobility Assessment Rolling Type of Rolling Log Rolling Level of Assist Contact Guard Assistance Supine to Sit Supine to Sit Minimal Assistance Head of Bed Elevated Sit to Supine Sit to Supine Minimal Assistance Scooting Scooting to Edge of Bed Independent PT-Transfer Assessment Sit to and From Stand Sit to and from Stand Contact Guard Assistance Equipment Transfer Assistive Device Gait Belt Front Wheeled Walker Orthotic/Prosthetic Devices or Brace: No Transfers Transfer Destination Bed Transfer Ability Level of Assist Contact Guard Assistance Gait Assessment Gait Gait Assistance Required: Contact Guard Assist Distance (Feet) (feet) 20 Able to Maintain Weight Bearing Status Yes During Gait Assistive Devices Assistive Device Gait Belt Front Wheeled Walker Gait Deviations General Gait Pattern Antalgic Decreased Stride Length Step-to Gait Wide Based Gait Comments Gait Comments increased reliance on UE's PT-Balance Assessment Sitting Balance and Reactions Static Sitting Balance Ability Normal Dynamic Sitting Balance Ability Normal Standing Balance and Reactions Static Standing Balance Ability Normal Dynamic Standing Balance Ability Good M5 PT-IP Objective Assessments Start: 05/06/18 12:50 Freq: NEEDED Status: Active Protocol: Document 05/06/18 10:44 MDD (Rec: 05/06/18 12:58 MDD [email or web address]) Orientation Orientation/Cognition Level of Alertness Alert Orientation Name Age Birthday Month Date Year Day of Week Place Situation Language Function Ability No Deficits Noted Safety Awareness Understands Safety Issues Memory Description No Deficits Noted Gross Range of Motion Lower Extremity ROM Assessment Within Functional Limits Strength Lower Extremity Strength Assessment Within Functional Limits Sensation Assessment Sensation Light Touch Intact M6 PT-IP Treatment Start: 05/06/18 12:50 Freq: NEEDED Status: Active Protocol: Document 05/07/18 13:20 MDD (Rec: 05/07/18 13:27 MDD [email or web address]) Physical Therapy Treatment Education Education Provided Precautions Post-Op Packet Safety Other Treatments Other Treatment Performed Bed mobility practice with log roll left. Able to perform with SBA, minimal cueing. Multiple sit to stand transfers emphasis on pushing from bed/chair rather than pulling walker. Performed stair training using quad cane and L railing with son present. Pt required CGA to ascend/descend 3 steps once with therapist and once with son for a total of 6 steps. Gait training x 45 feet, cues for step through pattern. M7 PT-IP Assessment and Plan Start: 05/06/18 12:50 Freq: NEEDED Status: Active Protocol: Document 05/07/18 13:20 MDD (Rec: 05/07/18 13:27 MDD [email or web address]) PT Summary Assessment and Plan Potential Rehabilitation Potential Excellent Status of Condition at Evaluation Stable Summary Impairments Pain ROM Progress Towards Goals Progressing Toward Goals Assessment Summary Pt demonstrating improved bed mobility, transfers and gait today. Considered safe to d/c home when medically appropriate. Goals Bed Mobility Goal Independent Transfer Goal Independent Gait Goal Standby Assistance Gait Distance 75 Other Goals Ascend/descend 5 steps with L hand railing Days to Meet Goals 3 Frequency of Treatment Frequency Of Treatment Discharge Treatment Plan Physical Therapy Treatment Plan Bed Mobility Training Transfer Training Gait Training Therapeutic Exercise Post Op Education Discharge Planning Other Recommendations and Next Treatment Stair training, increase Focus activity tolerance and gait distance Recommendations To Nursing Amount of Assist Needed Standby Assistance Discharge Recommendations PT Discharge Recommendations Home with Assistance
== END 2018-05-07 13:45 | disposition home or self-care (01) | DRG 470 ==
PROVIDERS: Internal Medicine; Admitting Provider Orthopaedic Surgery; PCP Family Medicine; Visit Provider Orthopaedic Surgery
PROC: 0SRC0JZ Replacement of Right Knee Joint with Synthetic Substitute, Open Approach (ICD-10-PCS; CPT 27447; principal; 2018-05-05 10:45)
DX: M17.11 Unilateral primary osteoarthritis, right knee (principal); N18.4 Chronic kidney disease, stage 4 (severe); Z95.1 Presence of aortocoronary bypass graft; Z90.5 Acquired absence of kidney; I25.10 Atherosclerotic heart disease of native coronary artery without angina pectoris; K21.9 Gastro-esophageal reflux disease without esophagitis; E66.01 Morbid (severe) obesity due to excess calories; Z68.39 Body mass index [BMI] 39.0-39.9, adult; E78.5 Hyperlipidemia, unspecified; E11.22 Type 2 diabetes mellitus with diabetic chronic kidney disease; I12.9 Hypertensive chronic kidney disease with stage 1 through stage 4 chronic kidney disease, or unspecified chronic kidney disease; Z79.4 Long term (current) use of insulin; M23.41 Loose body in knee, right knee; M25.761 Osteophyte, right knee; Z86.73 Personal history of transient ischemic attack (TIA), and cerebral infarction without residual deficits
CPT/HCPCS: 36415; 73560; 80048; 80053; 82962; 85025; 97110; 97116; 97161; 97530; C1776; C9290; J0690; J2250; J2704; J3010; J3370